=== PATIENT | male | born 1980 | race Caucasian/White ===

== ENCOUNTER 2018-04-09 11:36 | Emergency (ER) | payer MEDICAID ==
[~2018-04-09] VITALS: Ht 185.4 cm; Wt 120.0 kg
[~2018-04-09 11:36] MED LIST: BAC15O TP; IBUP-1984 PO; NO HOME MEDS
[2018-04-09] MEDS ORDERED: COLC0.6T69 PO (12:39)
[2018-04-09] MEDS ORDERED: colchicine 0.6mg tablet PO ONE (12:40)
[2018-04-09 12:59] VITALS: BP 130/99
== END 2018-04-09 13:02 | disposition home or self-care (01) ==
LOC: ER 11:37
DX: M10.9 Gout, unspecified (principal); Z98.890 Other specified postprocedural states; Z79.899 Other long term (current) drug therapy
CPT/HCPCS: 36415; 84550; 99283

== ENCOUNTER 2018-11-02 03:11 | Emergency (ER) | payer MEDICAID ==
[~2018-11-02] VITALS: Ht 182.9 cm; Wt 107.5 kg
[~2018-11-02 03:11] MED LIST changes: +COLC0.6T69 PO
[2018-11-02 03:18] VITALS: BP 120/80
[2018-11-02] MEDS ORDERED: PRED20TA PO (03:30)
[2018-11-02] MEDS ORDERED: acetaminophen 325mg tablet PO ONE (03:30)
[2018-11-02] MEDS ORDERED: ONDA4TAB12 PO (03:30)
== END 2018-11-02 03:37 | disposition home or self-care (01) ==
LOC: ER 03:12
DX: J06.9 Acute upper respiratory infection, unspecified (principal); Z79.2 Long term (current) use of antibiotics; Z79.899 Other long term (current) drug therapy; Z98.890 Other specified postprocedural states
CPT/HCPCS: 99281; 99283

== ENCOUNTER 2022-02-19 21:16 | Emergency (ER) | payer MEDICAID ==
[~2022-02-19] VITALS: Ht 182.9 cm; Wt 109.5 kg
[~2022-02-19 21:16] MED LIST changes: -COLC0.6T69 PO; +COLC0.6T72 PO; +ONDA4TAB12 PO
[2022-02-19 21:50] LABS: BASOPHILS % (AUTO) 0.3 % (0-1); EOSINOPHILS # (AUTO) 0.1 X10'3 (0-0.9); EOSINOPHILS % (AUTO) 0.9 % (0-6); HEMOGLOBIN 15.4 g/dl (14.0-17.9); LYMPHOCYTES # (AUTO) 1.9 X10'3 (1.1-4.8); LYMPHOCYTES % (AUTO) 33.4 % (21-51); MEAN CORPUSCULAR HEMOGLOBIN 32.3 PG (27.0-31.0); MEAN CORPUSCULAR VOLUME 92.2 FL (78-98); MEAN PLATELET VOLUME 7.6 FL (7.4-10.4); MONOCYTES # (AUTO) 0.8 X10'3 (0-0.9); NEUTROPHILS # (AUTO) 3.1 X10'3 (1.8-7.7); NEUTROPHILS % (AUTO) 52.4 % (42-75); PLATELET COUNT 216 X10'3 (140-440); RED BLOOD COUNT 4.77 X10'6 (4.70-6.10); RED CELL DISTRIBUTION WIDTH 12.4 % (11.5-14.5); WHITE BLOOD COUNT 5.8 X10'3 (4.5-11.0)
[2022-02-19 22:03] LABS: ALANINE AMINOTRANSFERASE 60 U/L (12-78); ALBUMIN 4.1 G/DL (3.4-5.0); ALBUMIN/GLOBULIN RATIO 0.9 (1.1-1.5); ALKALINE PHOSPHATASE 66 IU/L (46-116); ANION GAP 11 (8-16); ASPARTATE AMINO TRANSFERASE 24 U/L (10-37); BILIRUBIN,TOTAL 0.9 MG/DL (0.1-1.0); BLOOD UREA NITROGEN 13 MG/DL (7-18); BUN/CREATININE RATIO 11.3 (5.4-32.0); CALCIUM 9.1 MG/DL (8.5-10.1); CHLORIDE 105 MMOL/L (99-107); CREATININE 1.15 MG/DL (0.60-1.10); GLUCOSE 97 MG/DL (70-104); POTASSIUM 4.1 MMOL/L (3.5-5.1); SODIUM 142 MMOL/L (135-145); TOTAL CARBON DIOXIDE 26.3 MMOL/L (24-32); TOTAL PROTEIN 8.7 G/DL (6.4-8.2); eGFR 70 ML/MIN
[2022-02-20] MEDS ORDERED: ondansetron 4mg rapidly disintigrating tab PO ONE (02:45)
[2022-02-20] MEDS ORDERED: ONDA4TAB12 PO (02:55)
[2022-02-20 02:58] VITALS: BP 121/81
== END 2022-02-20 03:01 | disposition home or self-care (01) ==
LOC: ER 21:17
DX: R11.2 Nausea with vomiting, unspecified (principal)
CPT/HCPCS: 36415; 71045; 80053; 83880; 84484; 85025; 93005; 99285

== ENCOUNTER 2023-10-03 18:16 | Emergency (ER) | payer MEDICAID ==
[~2023-10-03] VITALS: Ht 180.3 cm; Wt 116.0 kg
[2023-10-03 18:21] VITALS: PULSE 87; RESP 16; TEMP 98; O2SAT 96
[2023-10-03] MEDS: LIDOcaine 1% W/epiNEPHrine 1:100,000 20ml vial SQ ONE (18:41)
[2023-10-03] MEDS: TETanus/Pertussis (Acell)/Diphther VAC/PF (Tdap-Adult) 0.5ml syringe IMVAC ONE (18:42)
== END 2023-10-03 19:51 | disposition home or self-care (01) ==
LOC: ER 18:16
DX: S51.811A Laceration without foreign body of right forearm, initial encounter (principal); Z72.89 Other problems related to lifestyle; Z79.899 Other long term (current) drug therapy; Z79.2 Long term (current) use of antibiotics; W45.8XXA Other foreign body or object entering through skin, initial encounter; Y93.89 Activity, other specified; Y92.89 Other specified places as the place of occurrence of the external cause; Y99.8 Other external cause status
CPT/HCPCS: 12001; 90471; 90715; 99283; A6449

== ENCOUNTER 2023-10-12 17:20 | Emergency (ER) | payer MEDICAID ==
[~2023-10-12] VITALS: Ht 180.3 cm; Wt 115.7 kg
[2023-10-12 17:36] VITALS: BP 150/88; PULSE 81; RESP 18; TEMP 97.5; O2SAT 98
== END 2023-10-12 17:47 | disposition home or self-care (01) ==
LOC: ER 17:20
DX: S51.811D Laceration without foreign body of right forearm, subsequent encounter (principal); Z79.899 Other long term (current) drug therapy; Z79.1 Long term (current) use of non-steroidal anti-inflammatories (NSAID); X58.XXXD Exposure to other specified factors, subsequent encounter
CPT/HCPCS: 99281